=== PATIENT | female | born 1985 | race Caucasian/White ===

== ENCOUNTER → 2020-06-29 12:54 | Outpatient (BNVA) | payer OTHER, SELFPAY | PROVIDERS: Visit Provider Nurse Practitioner Family | DX: J02.9 Acute pharyngitis, unspecified (principal) | CPT/HCPCS: 87071; 87880 ==

== ENCOUNTER 2023-11-11 13:26 | Emergency (ER) | payer SELFPAY ==
[2023-11-11 14:08] VITALS: BP 100/67; PULSE 100; RESP 17; TEMP 37.1; O2SAT 97; BMI 20.2
--- NOTE | 2023-11-11 14:31 | W.ED.ALLEREA ---
HPI - Allergic Reaction General: Chief complaint: Allergic Reaction Stated complaint: face and hands swollen, poss allergic reaction Time Seen by Provider: 11/11/23 14:16 History of Present Illness: HPI narrative: Patient comes in for some mild swelling to the face and hands. Patient had been given some amoxicillin for a upper respiratory infection but developed a rash. Patient was seen in urgent care on the sixth and was started on famotidine, prednisone, and Benadryl for the allergic reaction and switch to azithromycin for her infection. Patient appears nontoxic. Patient appears no acute distress. Review of Systems General: Reports: 10 or more systems reviewed and unremarkable except in HPI and below Skin/Breast: Reports: rash PFSH ED PFSH: Social History Smoking and tobacco/nicotine status: never used tobacco/nicotine Physical Exam Const: COMMON NORMALS: alert HENMT: COMMON NORMALS: normocephalic HEAD & SCALP: normocephalic MOUTH: Abnormal oral and palatal mucosa present (Thrush) Neck/C-Spine: COMMON NORMALS: full ROM Resp: COMMON NORMALS: normal respiratory effort Cardio: COMMON NORMALS: regular rate RATE: regular rate : COMMON NORMALS: Yes no CVA tenderness BLADDER/KIDNEY EXAM: Yes no CVA tenderness Back/Pelvis: COMMON NORMALS: no CVA tenderness and thoracic and lumbar spine normal to inspection Extremity: COMMON NORMALS: no pedal edema Neuro: SENSORIUM/ORIENTATION: Yes alert Skin: NARRATIVE SKIN EXAM: Generalized erythematous rash. Course Vital Signs: Vital signs: Vital Signs Temperature 98.7 F 11/11/23 14:08 Pulse Rate 100 11/11/23 14:08 Respiratory Rate 17 11/11/23 14:08 Blood Pressure 100/67 11/11/23 14:08 Pulse Oximetry 97 11/11/23 14:08 Oxygen Delivery Me thod Room Air 11/11/23 14:08 MDM - Allergic Reaction Medical Decision Making 38-year-old female comes in today with rash secondary to amoxicillin. On exam patient has a generalized papular rash is a body. Patient has some mild facial swelling to the rash and also noticeable thrush to the tongue. Differential diagnosis allergic reaction, anaphylaxis, oral candidiasis, respiratory distress. No signs of severe illness was noted. Patient was given a dose of 50 mg of diphenhydramine IM with improvement of rash and swelling. Patient was given some nystatin for the treatment of the thrush. Patient be continued on medications. Encourage fluids rest and follow-up with primary care. Patient was written for some hydroxyzine to need for further itching or rash. Also discussed use of Claritin to help with drowsiness caused by antihistamines. Patient reported understanding agreed to plan. No radiology studies performed this visit Discharge Plan Discharge Patient Disposition: Home Clinical Impression: Amoxicillin-induced allergic rash, Candidiasis of mouth Condition: Stable Prescriptions: New nystatin 100,000 unit/mL suspension 4 ml PO 5XD 7 Days Qty: 140 0RF Rx Instructions: swish and swallow hydroxyzine HCl 25 mg tablet 25 mg PO Q6H PRN (Reason: itching) Qty: 14 0RF No Action omeprazole 20 mg capsule,delayed release(DR/EC) 20 mg PO DAILY prednisone 20 mg tablet 60 mg PO DAILY 5 Days Qty: 15 0RF azithromycin [Zithromax] 500 mg tablet 500 mg PO DAILY 5 Days Qty: 5 0RF famotidine [Pepcid] 40 mg tablet 40 mg PO BID Qty: 10 0RF Discharge Orders: Discharge ED (Routine); Ordered 11/11/23 Ordered By: Carlos Esposito Discharge Diet: Usual diet Discharge Activity: Increase activity as tolerated Patient Instructions: General Allergic Reaction (ED) Activity Restrictions/Additional Instructions: Use Claritin 1 to 2 tablets twice a day to help control rash. Use nystatin swish and swallow 5 times a day while awake to help with thrush in the mouth. Drink plenty of water and fluids. Continue with other medications as directed. Follow-up with primary care as needed. Return to ER for increasing shortness of breath, severe chest pain, or new concerns. Coding Level of Care Code ED [employer] for Anastasia Mcintosh
[2023-11-11] MEDS: diphenhydrAMINE 50 mg/mL SDV 1mL IM (14:48)
[2023-11-11] MEDS: nystatin 100,000 unit/mL UDC 5 mL 400000 UNIT PO (14:48)
[2023-11-11 15:53] VITALS: BP 99/67; PULSE 87; RESP 17; O2SAT 98
== END 2023-11-11 15:35 | disposition home or self-care (01) ==
PROVIDERS: Emergency Provider Nurse Practitioner Family
DX: L27.0 Generalized skin eruption due to drugs and medicaments taken internally (principal); T36.0X5A Adverse effect of penicillins, initial encounter; B37.0 Candidal stomatitis
CPT/HCPCS: 96372; 99284; J1200

== ENCOUNTER 2024-09-16 10:20 | Outpatient (CLI) | payer BC, SELFPAY ==
--- NOTE | 2024-09-16 10:28 | US_ITS ---
WS: [id number] US pelvic complete* [id number] HISTORY: IUD PLACEMENT COMPARISON: None available. Uterus: 8.1 cm x 5.6 cm x 3.8 cm. Normal size retroverted uterus. No fibroid or mass identified. Endometrium: 0.2 cm. IUD is a probably positioned along the endometrial canal. No perforation is evident. Neither ovary was identified. No free fluid in the cul-de-sac. US/US pelvic complete* [id number] IMPRESSION: Normal position of the IUD.
== END 2024-09-16 10:21 | disposition home or self-care (01) ==
PROVIDERS: Visit Provider Nurse Practitioner Family
DX: Z97.5 Presence of (intrauterine) contraceptive device (principal)
CPT/HCPCS: 76856